=== PATIENT | male | born 1990 | race Caucasian/White ===

== ENCOUNTER 2019-01-27 09:49 | Emergency (ER) | payer BC ==
[2019-01-27 10:03] VITALS: BP 118/77
--- NOTE | 2019-01-27 11:32 | UC ---
Eye Complaint HPI - HPI Summary HPI Summary: 28-year-old male who states his left eye has been red for about 3 days. The first day it was more irritated and he's had some crusty drainage from it but he denies eye pain and no injury. He does not work contact lenses. - History of Current Complaint Chief Complaint: UCEye Stated Complaint: EYE IRRITATION Time Seen by Provider: 01/27/19 11:28 Hx Obtained From: Patient Onset/Duration: Gradual Onset Timing: Constant Severity Initially: Moderate Severity Currently: Mild Pain Intensity: 0 Location of Injury: Conjunctiva, Other Aggravating Factor(s): Nothing - No injury Alleviating Factor(s): Nothing Associated Signs And Symptoms: Positive: Drainage (Purulent) - I had been crusty shut for the past 2 days. - Allergies/Home Medications Allergies/Adverse Reactions: Allergies Allergy/AdvReac Type Severity Reaction Status Date / Time No Known Allergies Allergy Verified 01/27/19 10:04 PMH/Surg Hx/FS Hx/Imm Hx Previously Healthy: Yes - Surgical History Surgical History: None - Family History Known Family History: Positive: Non-Contributory - Social History Alcohol Use: Weekly Alcohol Amount: currently intoxicated Substance Use Type: None Smoking Status (MU): Current Some Day Smoker Type: Cigarettes - Immunization History Most Recent Tetanus Shot: In the past ten years Review of Systems All Other Systems Reviewed And Are Negative: Yes Eyes: Positive: Drainage, Eye Redness - Left eye had been crusted shut the past few mornings ENT: Positive: Nasal Discharge - Patient states he had some nasal congestion the first day of the eye redness. Is Patient Immunocompromised?: No Physical Exam Triage Information Reviewed: Yes Appearance: Well-Appearing, No Pain Distress, Well-Nourished Vital Signs: Initial Vital Signs Temp 97.8 F 01/27/19 10:01 Pulse 87 01/27/19 10:01 Resp 16 01/27/19 10:01 BP 118/77 01/27/19 10:01 Pulse Ox 99 01/27/19 10:01 Vital Signs Reviewed: Yes Eyes: Positive: Conjunctiva Inflamed, Discharge - No discharge presently, PERRLA , EOMI no evidence of stye formation. ENT Exam: Normal Neck exam: Normal Respiratory: Positive: Lungs clear, Normal breath sounds, No respiratory distress, No accessory muscle use Cardiovascular: Positive: RRR, No Murmur, Pulses Normal, Brisk Capillary Refill Eye Complaint Course/Dx - Course Course Of Treatment: I'm going to treat the patient for left conjunctivitis with tobramycin eyedrops. 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 He is to avoid touching his eyes and to practice good handwashing. The patient is agreeable to this plan of action. 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 - Billing Disposition and Condition Condition: FAIR Disposition: Home
== END 2019-01-27 11:40 | disposition home or self-care (01) ==
LOC: UCEAST 09:49
DX: H10.9 Unspecified conjunctivitis (principal); F17.210 Nicotine dependence, cigarettes, uncomplicated
CPT/HCPCS: 99212; G0463